=== PATIENT | female | born 1970 | race Two or more races ===

== ENCOUNTER 2017-08-30 11:45 | Day surgery (SDC) | payer BC, OTHER ==
[2017-08-28 17:04] VITALS: BMI 25.4
[2017-08-30] MEDS ORDERED: HEPARIN NA (PORCINE) 5,000 UNITS/ML 1ML VIAL ONE (11:59)
[2017-08-30] MEDS ORDERED: LIDOCAINE HCL/PF 2% SDV 5ML VIAL ONE (13:19)
[2017-08-30] MEDS ORDERED: ROCURONIUM BROMIDE 50 MG/5 ML VIAL ONE ×2 (13:19→15:27)
[2017-08-30] MEDS ORDERED: PROPOFOL 20 ML ONE ×3 (13:19→18:29)
[2017-08-30] MEDS ORDERED: ETOMIDATE 20 MG/10 ML AMPUL IVPUSH ONE (13:19)
[2017-08-30] MEDS ORDERED: MIDAZOLAM HCL 2 MG/2 ML SINGLE DOSE VIAL ONE (13:23)
[2017-08-30] MEDS ORDERED: LIDOCAINE HCL 1%, 10 MG/ML (20ML VIAL) ONE (13:37)
[2017-08-30] MEDS ORDERED: ceFAZolin SODIUM 1 GM VIAL ONE (14:42)
[2017-08-30] MEDS ORDERED: SODIUM CHLORIDE 0.9% P/F 10 ML VIAL IJ ONE (14:42)
[2017-08-30] MEDS ORDERED: ONDANSETRON 4 MG/2 ML VIAL ONE ×2 (14:44→18:26)
[2017-08-30] MEDS ORDERED: DEXAMETHASONE SOD PHOSPHATE 4 MG/1 ML VIAL ONE (14:44)
[2017-08-30] MEDS ORDERED: oxyCODONE HCL 5 MG TABLET PO PRN ×2 (15:53)
[2017-08-30] MEDS ORDERED: ONDANSETRON 4 MG/2 ML VIAL IVPUSH PRN (15:53)
[2017-08-30] MEDS ORDERED: LACTATED RINGERS SOLUTION 1,000 ML IV SCH ×2 (16:00→19:30)
[2017-08-30] MEDS ORDERED: NEOSTIGMINE METHYLSULFATE 0.5 MG/ML - 10 ML MDV ONE (18:27)
[2017-08-30] MEDS ORDERED: KETOROLAC TROMETHAMINE 30 MG/1 ML VIAL ONE (18:37)
[2017-08-30] MEDS ORDERED: ePHEDrine SULFATE 50 MG/1 ML AMPULE ONE (18:46)
[2017-08-30] MEDS ORDERED: morphine CARPU-JECT 10 MG/1 ML DISP.SYRIN IVPUSH PRN (19:26)
[2017-08-30] MEDS ORDERED: ONDANSETRON 4 MG/2 ML VIAL IVPB PRN (19:26)
[2017-08-30] MEDS ORDERED: PROMETHAZINE HCL 25 MG/1 ML VIAL IVPUSH ONE (19:27)
[2017-08-30] MEDS ORDERED: traMADol HCL 50 MG TABLET PO PRN (19:27)
--- NOTE | 2017-08-30 19:31 | OP ---
Operative Note - Note: Operative Date: 08/30/17 Pre-Operative Diagnosis: buttock deformity Operation: liposuction to back with fat grafting to buttocks Post-Operative Diagnosis: Same as Pre-op Surgeon: Chuckie Gutierrez Anesthesia: General Drains & Tubes with Location: SALOM[place]N x1 back
--- NOTE | 2017-08-30 21:19 | OP ---
DATE OF OPERATION: 08/30/2017 TITLE OF PROCEDURE: Liposuction to back and flanks and bilateral medial thighs with free fat grafting to bilateral buttocks. ATTENDING SURGEON: Alexandria Velasquez MD ASSISTANTS: None. ANESTHESIA: General endotracheal. 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 The patient is marked in a standing position, awake and aware of all risks, benefits, and alternatives to the procedure, also aware of the multitude of small stab wound incisions required for liposuction and fat grafting. She is marked of areas of fat removal and areas of fat addition. She understands, agrees to proceed. She is given 5000 units of subcutaneous heparin preoperatively. TEDs and sequential compression stockings are applied in the holding area. Patient is given 2 g of Ancef preoperatively. She is brought to the operating room, placed in a supine position for intubation. After which, a Estrada catheter is placed. She is then positioned on the operative table using a prone view mask and placed in a prone position using bilateral chest rolls. All padding is used. Surgical and anesthesia teams have checked the position. She is secured in position, prepped and draped in standard surgical fashion. A timeout is called. Patient, procedure, side, and sites are verified. Initially, a wetting solution is used for infiltration. The total amount of wetting solution for this case is 2.5 L. The first 2 L have 1 L of lactated Ringer's with 20 mL of 1% lidocaine plain and 1 ampule of 1:1000 epinephrine. The third liter contains no lidocaine. Wetting solution is infiltrated to the lower back, bilateral flanks, upper lateral back, and medial thighs. A full 20 minutes is waited for hemostatic effect of the wetting solution. Through multiple stab wound incisions, liposuction is performed using the SAFE technique with pre- and post-tunneling with 4-mm basket-tip cannula without suction. The suction is then performed using 4-mm cannulas. The liposuction aspirates as follows: Right lower back 800 mL, the left lower back 600 mL, the left upper back 100 mL, the right upper back 100 mL, the left inner thigh 125 mL, the right inner thigh 150 mL. This fat is harvested using the micro-fat harvesting system. It is washed and gravity and prepared in 10-mL syringes for buttock augmentation. The stab wound incisions are made in multiple locations along the buttocks in order to place the fat. The fat is placed entirely in a subcutaneous plane throughout the entire fat grafting using a 1.2-mm Taveras tip cannula, microdroplet technique. The injected volumes are as follows: In the left buttock, there is 432 mL of fat grafted; on the right buttock, 461 mL grafted. On the left hip, there is 55 mL grafted; on the right hip, 75 mL grafted. The endpoint is good symmetry projection. All injection wounds as well as liposuction wounds are closed with interrupted 5-0 nylon suture. Tegaderm and eye patch are used as dressings. The Estrada catheter is removed. A surgical compressive garment is applied. Patient is then transferred back to a supine position where she is extubated, transferred to Recovery, entirely neurovascularly intact. ALEXANDRIA VELASQUEZ M.D. [id number]
[2017-08-30] MEDS: CEFAZOLIN 1 GM/D5W 1 GM/50 ML BAG IVPB SCH (22:28)
[2017-08-31] MEDS: HYDROmorphone HCL CARPU-JECT 1 MG/1 ML DISP.SYRIN IVPUSH PRN ×2 (00:09→09:28)
[2017-08-31] MEDS: CEFAZOLIN 1 GM/D5W 1 GM/50 ML BAG IVPB SCH ×2 (02:40→09:28)
[2017-08-31] MEDS ORDERED: HEPARIN NA (PORCINE) 5,000 UNITS/ML 1ML VIAL SQ SCH (07:00)
[2017-08-31 07:11] VITALS: BP 148/86; PULSE 97; TEMP 97.6
--- NOTE | 2017-08-31 11:32 | PN ---
Progress Note (short form) - Note Progress Note: All tissues viable, NV in tact, ambulating, prone while in bed, receiving DVT prophylaxis. Eilquis upon discharge. Pain well controlled. OK for discharge with drain today.
== END 2017-08-31 14:00 | disposition home or self-care (01) ==
LOC: FASU 11:45 → FM/S 21:46 → FASU 08-31 14:00
PROVIDERS: ATTEND Plastic Surgery
PROC: 0J0M3ZZ Alteration of Left Upper Leg Subcutaneous Tissue and Fascia, Percutaneous Approach (ICD-10-PCS; 2017-08-30)
PROC: 0J0L3ZZ Alteration of Right Upper Leg Subcutaneous Tissue and Fascia, Percutaneous Approach (ICD-10-PCS; 2017-08-30)
PROC: 0J073ZZ Alteration of Back Subcutaneous Tissue and Fascia, Percutaneous Approach (ICD-10-PCS; principal; 2017-08-30 15:14)
DX: Z41.1 Encounter for cosmetic surgery (principal)
CPT/HCPCS: 94760; J1644